=== PATIENT | female | born 1960 | race Caucasian/White ===

== ENCOUNTER 2025-01-15 16:56 | Emergency (ER) | payer BC ==
[2025-01-15] MEDS: Diphtheria,Pertussis(Acell),Tetanus Vaccine 0.5 ML Syringe IM ONE (18:44)
== END 2025-01-15 18:52 | disposition home or self-care (01) ==
LOC: JP.ED 16:56
DX: S91.331A Puncture wound without foreign body, right foot, initial encounter (principal); X58.XXXA Exposure to other specified factors, initial encounter; Y93.01 Activity, walking, marching and hiking
CPT/HCPCS: 90471; 90715; 99283-25